=== PATIENT | female | born 1955 | race Caucasian/White ===

== ENCOUNTER 2017-03-10 09:54 | Emergency (ER) | payer OTHER ==
[~2017-03-10] VITALS: Ht 157.5 cm; Wt 110.0 kg
[~2017-03-10 09:54] MED LIST: CYAN1000P IM; GNP50LIQ PO; HYDR-2768 PO; KLOR8TAB PO; MEVA40TA PO; SYNT175T PO; ULTR50TA PO; Z.0.CPM
[2017-03-10 10:27] VITALS: BP 127/71; PULSE 60; RESP 18; TEMP 98.2; O2SAT 96
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
[2017-03-10] MEDS ORDERED: LEVO150T7 PO (11:36)
[2017-03-10] MEDS ORDERED: LOVA40TA PO (11:36)
[2017-03-10] MEDS ORDERED: LISI10TA PO (11:36)
[2017-03-10] MEDS ORDERED: BUPR150XL PO (11:36)
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
[2017-03-10] MEDS ORDERED: KETOROLAC TROMETHAMINE 60 MG/2 ML (IM) VIAL IM ONE (12:15)
[2017-03-10 13:30] VITALS: BP 129/74; PULSE 70; RESP 16; O2SAT 98
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
[2017-03-10] MEDS ORDERED: ARTHTAB2 PO (14:59)
[2017-03-10] MEDS ORDERED: CYCL1TAB29 PO (15:04)
[2017-03-10 15:21] VITALS: BP 122/68
== END 2017-03-10 15:24 | disposition home or self-care (01) ==
LOC: PHED 09:54
DX: S09.90XA Unspecified injury of head, initial encounter (principal); S16.1XXA Strain of muscle, fascia and tendon at neck level, initial encounter; M54.2 Cervicalgia; Y04.2XXA Assault by strike against or bumped into by another person, initial encounter; Y92.219 Unspecified school as the place of occurrence of the external cause; Y99.0 Civilian activity done for income or pay
CPT/HCPCS: 70450; 72125; 72141; 96372; 99284; J1885

== ENCOUNTER 2017-04-28 21:13 | Emergency (ER) | payer OTHER ==
[~2017-04-28 21:13] MED LIST changes: +ARTHTAB2 PO; +BUPR150XL PO; -CYAN1000P IM; +CYCL10TA PO; -GNP50LIQ PO; -HYDR-2768 PO; -KLOR8TAB PO; +LEVO150T7 PO; +LISI10TA PO; +LOVA40TA PO; -MEVA40TA PO; -SYNT175T PO; -ULTR50TA PO; -Z.0.CPM
[2017-04-28 21:16] VITALS: BP 180/103; PULSE 92; RESP 20; TEMP 98.2; O2SAT 97
[2017-04-28 21:44] VITALS: BP 191/101; PULSE 88; RESP 20; O2SAT 97
[2017-04-28] MEDS ORDERED: KETOROLAC TROMETHAMINE 60 MG/2 ML (IM) VIAL IM ONE (21:45)
[2017-04-28] MEDS ORDERED: PRED20 PO (21:53)
[2017-04-28] MEDS ORDERED: POTA8TAB PO (21:53)
[2017-04-28] MEDS ORDERED: HYDR25TA5 PO (21:53)
[2017-04-28] MEDS ORDERED: AZIT250T3 PO (21:53)
[2017-04-28] MEDS ORDERED: LISI-519 PO (21:53)
[2017-04-28] MEDS ORDERED: CYAN1TAB24 (21:53)
--- NOTE | 2017-04-28 22:29 | RADRPT ---
EXAM DATE/TIME: 04/28/2017 22:03 [facility] COMPARISON: No previous studies available for comparison. INDICATIONS : Cephalgia. RADIATION DOSE: 25.54 CTDIvol (mGy) MEDICAL HISTORY : None SURGICAL HISTORY : None. ENCOUNTER: Initial ACUITY: 1 day PAIN SCORE: 5/10 LOCATION: cranial TECHNIQUE: Volumetric scanning of the paranasal sinuses was performed. Using automated exposure control and adj ustment of the mA and/or kV according to patient size, radiation dose was kept as low as reasonably a chievable to obtain optimal diagnostic quality images. DICOM format image data is available electro nically for review and comparison. FINDINGS: MAXILLARY SINUSES: Normal. No significant mucosal thickening or fluid. Infundibula are patent. No anomalous inferior orbital ethmoid (Amos) air cells. ETHMOID SINUSES: Normal. No significant mucosal thickening or fluid. Fovea ethmoidal and lamina papyracea are symmet maximo and intact. SPHENOID SINUSES: Normal. No significant mucosal thickening or fluid. Sphenoethmoidal recesses are patent. No bony d ehiscence. FRONTAL SINUSES: Normal. No significant mucosal thickening or fluid. Frontal recesses are patent. No anomalous fron leander air cells. NASAL FOSSA: Normal. No septal perforation or deviation. No abad bullosa or paradoxical turbinates are identifie d. OTHER: Normal. Limited views of the skull base and orbits are unremarkable. CONCLUSION: Normal examination. Syd Agee Jr., MD on April 28, 2017 at 22:26 Board Certified Radiologist. This report was verified electronically.
[2017-04-28] MEDS ORDERED: PERC5TAB12 PO (22:39)
--- NOTE | 2017-04-28 22:39 | PD ---
HPI Chief Complaint: ENT Complaint Time Seen by Provider: 21:31 Travel History International Travel<30 days: No Contact w/Intl Traveler<30days: No Traveled to known affect area: No History of Present Illness HPI The patient is a 61-year-old female who came in because of "sinus pressure" and swelling in the nose and orbital areas. She is been on a Z-Jt for 3 days and it is not helping. She denies any fever. She states a Z-Jt does help before but not this time. PFSH Past Medical History Arthritis: Yes (osteo) Cancer: No Cardiovascular Problems: No High Cholesterol: Yes Diabetes: No Diminished Hearing: No Endocrine: Yes Fibromyalgia: Yes Gastrointestinal Disorders: No Genitourinary: Yes (INCONTINENCE) Hepatitis: No Hiatal Hernia: No Hypertension: Yes Immune Disorder: Yes (FIBROMYALGIA) Medical other: Yes (PT CURRENTLY IN A STUDY WITH [facility]) Musculoskeletal: Yes (ARTHRITIS, DDD C4-5-6, FIBROMYALGIA) Neurologic: Yes (NEUROPATHY LEGS, HX TIA) Psychiatric: No Reproductive: No Respiratory: No Immunizations Current: Yes Thyroid Disease: Yes ?: Not Menopausal: Yes Past Surgical History Abdominal Surgery: Yes (LAP. VIDAL) AICD: No Body Medical Devices: NONE Cholecystectomy: Yes Ear Surgery: No Endocrine Surgery: No Eye Surgery: No Gynecologic Surgery: Yes (C SECTION, TUBAL LIG., HYSTERECTOMY) Hysterectomy: Yes (Full) Joint Replacement: Yes (bilat knee) Neurologic Surgery: No Pacemaker: No Tonsillectomy: Yes Other Surgery: Yes Social History Alcohol Use: No Tobacco Use: No (quit 7 yrs ago smoked 1/2 ppd) Substance Use: No Allergies-Medications (Allergen,Severity, Reaction): Coded Allergies: alendronate sodium (Verified Allergy, Severe, RASH, 04/28/17) cephalexin (Verified Allergy, Severe, RASH, 04/28/17) penicillin G (Verified Allergy, Intermediate, RASH, 04/28/17) magnesium (Verified Adverse Reaction, Severe, ITCH, 04/28/17) magnesium hydroxide (Verified Adverse Reaction, Severe, ITCH, 04/28/17) magnesium oxide (Verified Adverse Reaction, Severe, ITCH, 04/28/17) magnesium sulfate (Verified Adverse Reaction, Severe, ITCH, 04/28/17) Reported Meds & Prescriptions Reported Meds & Active Scripts Active Reported Azithromycin 250 Mg Tab 250 Mg PO DIRECTED Take 2 tabs (500 mg) on day 1 then 1 tab daily x 4 days. Prednisone 20 Mg Tab 20 Mg PO DAILY Hydrochlorothiazide 25 Mg Tab 25 Mg PO DAILY Lisinopril 5 Mg Tab 5 Mg PO DAILY B12 (Cyanocobalamin) 1,000 Mcg Tab Potassium Chloride ER (Potassium Chloride) 8 Meq Tab 8 Meq PO TID Wellbutrin Xl 24 HR (Bupropion HCl) 150 Mg Tab 150 Mg PO DAILY Levothyroxine (Levothyroxine Sodium) 150 Mcg Tab 150 Mcg PO DAILY Lovastatin 40 Mg Tab 40 Mg PO DAILY Review of Systems Except as stated in HPI: all other systems reviewed are Neg Physical Exam Narrative GENERAL: Well-nourished, well-developed patient in moderate apparent distress with her facial swelling. Her vital signs show blood pressure 180/103 and heart rate of 92 but otherwise normal. SKIN: Focused skin assessment warm/dry. HEAD: Normocephalic. The patient has some swelling in the face and slight sinus tenderness over the maxillary area. EYES: No scleral icterus. No injection or drainage. NECK: Supple, trachea midline. No JVD or lymphadenopathy. CARDIOVASCULAR: Regular rate and rhythm without murmurs, gallops, or rubs. RESPIRATORY: Breath sounds equal bilaterally. No accessory muscle use. GASTROINTESTINAL: Abdomen soft, non-tender, nondistended. MUSCULOSKELETAL: No cyanosis, or edema. BACK: Nontender without obvious deformity. No CVA tenderness. Data Data Last Documented VS Vital Signs Date Time Temp Pulse Resp B/P (MAP) Pulse Ox O2 Delivery O2 Flow Rate FiO2 04/28/17 21:44 88 20 191/101 (131) 97 04/28/17 21:[address] Sinuses W/O Iv Contrast (04/28/17 ) Ketorolac Inj (Toradol Inj) (04/28/17 21:45) MDM Medical Decision Making Medical Screen Exam Complete: Yes Emergency Medical Condition: Yes Medical Record Reviewed: Yes Interpretation(s) CT of the sinuses without IV contrast is unremarkable. There is no significant mucosal thickening or fluid in the sphenoid, frontal, ethmoid or maxillary sinuses. Differential Diagnosis Viral syndrome, rhinosinusitis, acute sinusitis, facial pain Narrative Course The patient does appear to have significant facial pain. This may simply be a viral rhinosinusitis. Is no evidence for acute bacterial sinusitis on the CT. Diagnosis Primary Impression: Viral syndrome Additional Impression: Acute rhinosinusitis Med/Other Pt SpecificInfo: Prescription(s) given Scripts Oxycodone-Acetaminophen (Percocet) 5-325 mg Tab 1 TAB PO Q6H Y for PAIN, #30 TAB 0 Refills Prov: Oneil Branch MD 04/28/17 Disposition: 01 DISCHARGE HOME Condition: Stable Oneil Branch MD Apr 28, 2017 22:39
[2017-04-28 22:43] VITALS: BP 148/77
[2017-04-28 23:00] VITALS: RESP 18
== END 2017-04-28 23:15 | disposition home or self-care (01) ==
LOC: PHED 21:13
DX: B34.9 Viral infection, unspecified (principal); J01.90 Acute sinusitis, unspecified
CPT/HCPCS: 70486; 96372; 99284; J1885